=== PATIENT | female | born 1940 | race Caucasian/White ===

== ENCOUNTER 2016-06-25 00:49 | Emergency (ER) | payer MEDICARE, OTHER ==
[~2016-06-25] VITALS: Ht 149.9 cm; Wt 66.2 kg
[~2016-06-25 00:49] MED LIST: ACET500T68 PO; ALBU1.25 NEB; AMLO10TA2 PO; ARGI1POW19 PO; ASCO250T3 PO; ASPI-482 PO; BENZ100C2 PO; BUPR150T20 PO; BUPR150T6 PO; CARV25TA2 PO; DOCU100C5 PO; ESCI10TA PO; ESOM40CA PO; FOLI0.8T3 PO; FURO40TA4 PO; FURO80TA72 PO; HYDR100T24 PO; LOSA1TAB17 PO; LOSA1TAB18 PO; NYST30PO9 TP; ONDA4TAB10 SL; POLY17PO5 PO; RANI300C PO
[2016-06-25] MEDS ORDERED: GELATIN SPONGE SIZE 100. TP ONE (01:30)
[2016-06-25 01:39] LABS: INR 1.4 (0.8-1.1)
[2016-06-25 01:42] LABS: CALCIUM 8.3 mg/dL (8.5-10.1); CREATININE 2.5 mg/dL (0.6-1.0); GFR 18.9; POTASSIUM 3.9 mmol/L (3.5-5.1)
[2016-06-25 01:56] LABS: BASO # 0.1 x10^3/uL (0.0-0.2); BASO % 1 % (0-3); EOS % 2 % (0-3); HEMATOCRIT 33.3 % (36.0-47.0); HEMOGLOBIN 10.7 g/dL (12.0-15.5); LYMPH # 0.3 x10^3/uL (1.0-4.8); LYMPH % 6 % (24-48); MEAN CORPUSCULAR HEMOGLOBIN 29 pg (25-35); MEAN CORPUSCULAR HGB CONC 32 g/dL (31-37); MEAN CORPUSCULAR VOLUME 91 fL (79-100); MONO % 9 % (0-9); NEUT % 82 % (31-73); PLATELET COUNT 182 x10^3/uL (140-400); RED BLOOD COUNT 3.68 x10^6/uL (3.50-5.40); WHITE BLOOD COUNT 5.3 x10^3/uL (4.0-11.0)
--- NOTE | 2016-06-25 03:31 | PHYS DOC ---
Past Medical History Past Medical History: Anxiety, Depression, Diabetes-Type II, Hypertension, Renal Failure, Other Additional Past Medical Histor: gastroporesis Past Surgical History: Cholecystectomy, Tonsillectomy, Other Additional Past Surgical Histo: dialysis fistula ROXI arm Alcohol Use: None Drug Use: None Adult General Chief Complaint Chief Complaint: WOUND CHECK HPI HPI Patient is a 75 year old female who presents with bleeding from AV fistula after dialysis. She states she had uneventful dialysis yesterday, her alarm accidentally went off very early this morning & when she woke up she noticed bleeding from her fistula. She states this happened once before & was controlled with direct pressure. Denies bleeding from gums, hematemesis, hemoptysis, hematochezia/melena. She denies use of blood thinners. She comes from [facility]. Review of Systems Review of Systems Constitutional: Denies fever HENT: Denies nasal congestion or sore throat Respiratory: Denies cough or shortness of breath Cardiovascular: Denies chest pain GI: Denies abdominal pain, nausea, vomiting, bloody stools : Denies hematuria Musculoskeletal: Reports bleeding from AV fistula. Integument: Denies rash Neurologic: Denies headache Current Medications Current Medications Current Medications Medications (Trade) Dose Ordered Sig/Prisca Start Time Stop Time Status Last Admin Dose Admin Gelatin (Gelfoam Size 100) 1 each 1X ONCE 06/25/16 01:30 06/25/16 01:32 DC 06/25/16 02:11 1 EACH Allergies Allergies Allergies Coded Allergies Type Severity Reaction Last Updated Verified codeine Allergy Mild "makes me sleepy" 02/19/16 Yes quinine Allergy Mild "makes me sleepy" 02/19/16 Yes Physical Exam Physical Exam Constitutional: Well developed, well nourished, no acute distress, non-toxic appearance. HENT: Normocephalic, atraumatic, bilateral external ears normal, oropharynx moist, nose normal. Eyes: conjunctiva normal, no discharge. Cardiovascular: no edema. Lungs & Thorax: no respiratory distress. Abdomen: nondistended. Skin: Warm, dry, no erythema, no rash. Extremities: LUE AV fistula with ongoing minimal bleeding, clamp applied. distally NV intact. Neurologic: Alert and oriented X 3 Current Patient Data Vital Signs Vital Signs Date Time Temp Pulse Resp B/P Pulse Ox O2 Delivery O2 Flow Rate FiO2 06/25/16 03:55 67 192/95 96 Nasal Cannula 2 06/25/16 00:58 98.8 18 98.8 Lab Values Laboratory Tests Test 06/25/16 01:24 06/25/16 01:50 Prothrombin Time 16.0SEC (11.7-14.0) H Prothrombin Time INR 1.4 (0.8-1.1) H Sodium Level 136mmol/L (136-145) Potassium Level 3.9mmol/L (3.5-5.1) Chloride Level 99mmol/L (98-107) Carbon Dioxide Level 28mmol/L (21-32) Anion Gap 9 (6-14) Blood Urea Nitrogen 17mg/dL (7-20) Creatinine 2.5mg/dL (0.6-1.0) H Estimated GFR (Cockcroft-Gault) 18.9 Glucose Level 241mg/dL (70-99) H Calcium Level 8.3mg/dL (8.5-10.1) L White Blood Count 5.3x10^3/uL (4.0-11.0) Red Blood Count 3.68x10^6/uL (3.50-5.40) Hemoglobin 10.7g/dL (12.0-15.5) L Hematocrit 33.3% (36.0-47.0) L Mean Corpuscular Volume 91fL (79-100) Mean Corpuscular Hemoglobin 29pg (25-35) Mean Corpuscular Hemoglobin Concent 32g/dL (31-37) Red Cell Distribution Width 19.0% (11.5-14.5) H Platelet Count 182x10^3/uL (140-400) Neutrophils (%) (Auto) 82% (31-73) H Lymphocytes (%) (Auto) 6% (24-48) L Monocytes (%) (Auto) 9% (0-9) Eosinophils (%) (Auto) 2% (0-3) Basophils (%) (Auto) 1% (0-3) Neutrophils # (Auto) 4.3x10^3uL (1.8-7.7) Lymphocytes # (Auto) 0.3x10^3/uL (1.0-4.8) L Monocytes # (Auto) 0.5x10^3/uL (0.0-1.1) Eosinophils # (Auto) 0.1x10^3/uL (0.0-0.7) Basophils # (Auto) 0.1x10^3/uL (0.0-0.2) Laboratory Tests 06/25/16 01:50 Laboratory Tests 06/25/16 01:24 EKG EKG [] Radiology/Procedures Radiology/Procedures [] Course & Med Decision Making Course & Med Decision Making Pertinent Labs and Imaging studies reviewed. (See chart for details) Patient presents with bleeding from AV fistula. Applied direct pressure with clamp, there was still minimal amount of oozing of blood. Applied gelfoam with clamp for additional 30 minutes. Bleeding stopped & did not resume. Kept gelfoam in place, RN applied Coban dressing. Will transfer back to facility in stable & improved condition. Recommend evaluation by PCP tomorrow, nephrology/ dialysis center to advise regarding resuming regular dialysis. Come back for recurrence of uncontrolled bleeding. Discharged in stable & improved condition. [] Dragon Disclaimer Dragon Disclaimer This electronic medical record was generated, in whole or in part, using a voice recognition dictation system. Departure Departure Impression: Primary Impression: Bleeding from dialysis shunt Disposition: 05 TRANSFER OTHER Condition: IMPROVED Referrals: UNKNOWN PCP NAME (PCP) Patient Instructions: Dialysis (AV) Shunt, Malfunction Additional Instructions: You were seen in the emergency department today for bleeding from dialysis shunt. The bleeding was controlled here. The bandage should be changed in about 6 hours. You should be evaluated by a physician tomorrow. Nursing staff may correspond with your medication coordinator or dialysis center to determine when it is safe to resume dialysis. Return to the hospital for uncontrolled bleeding, more than oozing, any otherwise worsening condition. VIRIDIANA MANCERA MD Jun 25, 2016 03:31
[2016-06-25 03:55] VITALS: BP 192/95
== END 2016-06-25 03:59 | disposition short-term general hospital (02) ==
LOC: ER 00:49
DX: T82.838A Hemorrhage due to vascular prosthetic devices, implants and grafts, initial encounter (principal); E11.22 Type 2 diabetes mellitus with diabetic chronic kidney disease; I12.9 Hypertensive chronic kidney disease with stage 1 through stage 4 chronic kidney disease, or unspecified chronic kidney disease; N18.9 Chronic kidney disease, unspecified; E11.43 Type 2 diabetes mellitus with diabetic autonomic (poly)neuropathy; K31.84 Gastroparesis; F32.9 Major depressive disorder, single episode, unspecified; F41.9 Anxiety disorder, unspecified; Z88.8 Allergy status to other drugs, medicaments and biological substances; Z99.2 Dependence on renal dialysis; Z88.5 Allergy status to narcotic agent; Y84.1 Kidney dialysis as the cause of abnormal reaction of the patient, or of later complication, without mention of misadventure at the time of the procedure; Y92.89 Other specified places as the place of occurrence of the external cause
CPT/HCPCS: 36415; 80048; 85027; 85610; 99284; 99285

== ENCOUNTER 2016-07-08 07:34 | Inpatient (IN) | payer MEDICARE, OTHER ==
[~2016-07-08] VITALS: Ht 149.9 cm; Wt 63.5 kg
[~2016-07-08 07:34] MED LIST changes: +NYST15PO9 TP; -NYST30PO9 TP; +POLY17PO29 PO; -POLY17PO5 PO
[2016-07-08] MEDS ORDERED: GELATIN SPONGE SIZE 100. ONE (07:39)
[2016-07-08] MEDS ORDERED: GELATIN SPONGE SIZE 100. TP ONE (07:45)
--- NOTE | 2016-07-08 08:04 | PHYS DOC ---
Past Medical History Past Medical History: Anxiety, Depression, Diabetes-Type II, Hypertension, Renal Failure, Other Additional Past Medical Histor: gastroporesis Past Surgical History: Cholecystectomy, Tonsillectomy, Other Additional Past Surgical Histo: dialysis fistula ROXI arm Alcohol Use: None Drug Use: None Adult General Chief Complaint Chief Complaint: DIALYSIS PROBLEM HPI HPI This 75-year-old female who is presenting with some mild bleeding from her AV fistula on the left upper extremity that was noted in the night. She states she awoke with blood in her bed. She states she had the fistula assessed yesterday by her vascular surgeon and it was otherwise normal. She did not yet receive her dialysis treatment today. The fistula was not accessed recently. She denies any symptoms whatsoever. She denies any chest pain or shortness of breath. The AV fistula site shows a mild venous oozing but no pulsatile bleeding. Patient states she had this complication several weeks ago as well and was seen here at that time and it improved with direct pressure and no other intervention. Patient is normally requiring 2 L of O2 by nasal cannula. She is saturating appropriately with her usual oxygen therapy. She is in no acute distress at this time. Review of Systems Review of Systems Constitutional: Denies fever or chills [] Eyes: Denies change in visual acuity, redness, or eye pain [] HENT: Denies nasal congestion or sore throat [] Respiratory: Denies cough or shortness of breath [] Cardiovascular: No additional information not addressed in HPI [] GI: Denies abdominal pain, nausea, vomiting, bloody stools or diarrhea [] : Denies dysuria or hematuria [] Musculoskeletal: Denies back pain or joint pain [] Integument: Denies rash or skin lesions [] Neurologic: Denies headache, focal weakness or sensory changes [] Endocrine: Denies polyuria or polydipsia [] Current Medications Current Medications Current Medications Medications (Trade) Dose Ordered Sig/Prisca Start Time Stop Time Status Last Admin Dose Admin Gelatin (Gelfoam Size 100) 1 each STK-MED ONCE 07/08/16 07:39 07/08/16 07:40 DC Tranexamic Acid (Cyklokapron) 1,000 mg 1X ONCE 07/08/16 09:00 07/08/16 09:01 DC 07/08/16 09:11 1,000 MG Allergies Allergies Allergies Coded Allergies Type Severity Reaction Last Updated Verified codeine Allergy Mild "makes me sleepy" 02/19/16 Yes quinine Allergy Mild "makes me sleepy" 02/19/16 Yes Physical Exam Physical Exam Constitutional: Well developed, well nourished, no acute distress, non-toxic appearance. [] HENT: Normocephalic, atraumatic, bilateral external ears normal, oropharynx moist, no oral exudates, nose normal. [] Eyes: PERRLA, EOMI, conjunctiva normal, no discharge. [] Neck: Normal range of motion, no tenderness, supple, no stridor. [] Cardiovascular:Heart rate regular rhythm, no murmur [] Lungs & Thorax: Bilateral breath sounds clear to auscultation [] Abdomen: Bowel sounds normal, soft, no tenderness, no masses, no pulsatile masses. [] Skin: Warm, dry, no erythema, no rash. [] Back: No tenderness, no CVA tenderness. [] Extremities: No tenderness, no cyanosis, no clubbing, ROM intact, no edema, left -sided AV fistula site shows mild venous oozing from a focal pinpoint site, there is no pulsatile bleeding, AV fistula site appears otherwise unremarkable. [] Neurologic: Alert and oriented X 3, normal motor function, normal sensory function, no focal deficits noted. [] Psychologic: Affect normal, judgement normal, mood normal. [] Current Patient Data Vital Signs Vital Signs Date Time Temp Pulse Resp B/P (MAP) Pulse Ox O2 Delivery O2 Flow Rate FiO2 07/08/16 07:35 98.1 72 16 210/87 (128) 97 Nasal Cannula 2.0 98.1 EKG EKG [] Radiology/Procedures Radiology/Procedures [] Course & Med Decision Making Course & Med Decision Making Pertinent Labs and Imaging studies reviewed. (See chart for details) 75-year-old female with some mild venous oozing from her fistula site will have gentle pressure and Gelfoam applied and will be observed in the department for several hours for any complications. If the bleeding is controlled she will be discharged to receive her hemodialysis as scheduled later today. If she continues to have any bleeding complication, she'll be admitted to the hospital for further evaluation and observation. General pressure and Gelfoam was tried and unsuccessful. A TXA soaked gauze was applied to the area with gentle pressure as well and the patient still mildly bleeding at this time. An IV will be placed laboratory workup will be obtained. I'll be admitting the patient primarily to the hospital service as well as having a vascular surgery consult for her continued bleeding fistula. Discussed the case with the on-call vascular surgeon, Dr. Connors, who agreed to accept the patient for further evaluation and treatment. There were no further recommendations at this time. I additionally discussed the case with the hospitalist, Dr. Clement, who agreed to accept the patient. Nephrology consult was placed. Her laboratory workup is unremarkable. There is no evidence of any bleeding coagulopathy. Her hemoglobin was stable. She is not on blood thinners. Dragon Disclaimer Dragon Disclaimer This electronic medical record was generated, in whole or in part, using a voice recognition dictation system. Departure Departure Impression: Primary Impression: Bleeding from dialysis shunt Disposition: ADMITTED INPATIENT Admitting Physician: Gaby Clement Condition: STABLE Referrals: UNKNOWN PCP NAME (PCP) COLLIN LLOYD DO July 08, 2016 08:04
[2016-07-08] MEDS ORDERED: TRANEXAMIC ACID 1,000 MG/10 ML VIAL. TOP ONE (09:00)
[2016-07-08 10:38] LABS: BASO % 0 % (0-3); EOS % 1 % (0-3); HEMATOCRIT 33.7 % (36.0-47.0); HEMOGLOBIN 11.1 g/dL (12.0-15.5); LYMPH # 0.4 x10^3/uL (1.0-4.8); LYMPH % 6 % (24-48); MEAN CORPUSCULAR HEMOGLOBIN 29 pg (25-35); MEAN CORPUSCULAR HGB CONC 33 g/dL (31-37); MEAN CORPUSCULAR VOLUME 89 fL (79-100); MONO % 6 % (0-9); NEUT % 87 % (31-73); PLATELET COUNT 207 x10^3/uL (140-400); RED BLOOD COUNT 3.79 x10^6/uL (3.50-5.40); RED CELL DISTRIBUTION WIDTH 18.5 % (11.5-14.5)
[2016-07-08 10:44] LABS: INR 1.4 (0.8-1.1); PROTHROMBIN TIME PATIENT 16.3 SEC (11.7-14.0)
[2016-07-08] MEDS ORDERED: ONDANSETRON PF 4 MG/2 ML VIAL. IV PRN (10:45)
[2016-07-08] MEDS ORDERED: ACETAMINOPHEN 325 MG TABLET. PO PRN (10:45)
[2016-07-08 10:46] LABS: CALCIUM 8.7 mg/dL (8.5-10.1); CREATININE 3.9 mg/dL (0.6-1.0); GFR 11.3; POTASSIUM 4.5 mmol/L (3.5-5.1)
--- NOTE | 2016-07-08 11:49 | PDOC2 ---
CONSULT Date of Consult Date of Consult DATE: 07/08/16 TIME: 11:45 Reason for Consult Reason for Consult: ESRD Referring Physician Referring Physician: Dr Turcios Identification/Chief Complaint Chief Complaint bleeding from AV Access even before starting HD Problems: Source Source: Chart review, Patient History of Present Illness Reason for Visit: as dictated Past Medical History Cardiovascular: HTN Heme/Onc: Anemia NOS Psych: Depression Musculoskeletal: Osteoarthritis, Other Renal/: Chronic renal failure Endocrine: Diabetes Past Surgical History Past Surgical History: Cholecystectomy Family History Family History: Other (-ve from renal standpoint) Social History ALCOHOL: none Drugs: None Lives: with Family Current Problem List Problem List Problems Medical Problems: (1) Bleeding from dialysis shunt Status: Acute Current Medications Current Medications Current Medications Gelatin (Gelfoam Size 100) 1 each 1X ONCE TP Last administered on 07/08/16 07 :40; Start 07/08/16 at 07:45; Stop 07/08/16 at 07:46; Status DC Gelatin (Gelfoam Size 100) 1 each STK-MED ONCE .ROUTE ; Start 07/08/16 at 07:39 ; Stop 07/08/16 at 07:40; Status DC Tranexamic Acid (Cyklokapron) 1,000 mg 1X ONCE TOP Last administered on 09:11; Start 07/08/16 at 09:00; Stop 07/08/16 at 09:01; Status DC Ondansetron HCl (Zofran) 4 mg PRN Q8HRS PRN IV NAUSEA/VOMITING; Start 07/08/16 at 10:45; Stop 07/09/16 at 10:44 Acetaminophen (Tylenol) 650 mg PRN Q4HRS PRN PO FEVER; Start 07/08/16 at 10:45; Stop 07/09/16 at 10:44 Active Scripts Active Reported Ascorbic Acid 250 Mg Tablet 250 Mg PO DAILY Amlodipine Besylate 10 Mg Tablet 10 Mg PO DAILY Bupropion Hcl Sr (Bupropion Hcl) 150 Mg Tablet.er 150 Mg PO DAILY Hydralazine Hcl 100 Mg Tablet 1 Tab PO BID Losartan-Hctz 100-12.5 Mg Tab (Losartan/Hydrochlorothiazide) 1 Each Tablet 1 Tab PO DAILY Albuterol Sulfate Neb Soln (Albuterol Sulfate) 1.25 Mg/3 Ml Vial.neb 1 Vial NEB Q6HRS Ranitidine Hcl 300 Mg Capsule 1 Cap PO DAILY Miralax (Polyethylene Glycol 3350) 17 Gm Powd.pack 1 Packet PO DAILY Zofran Odt (Ondansetron) 4 Mg Tab.rapdis 1 Tab SL PRN Q4HRS PRN Nystatin 15 Gm Powder 1 Delmy TP PRN TID PRN Nephro-Hari Tablet (Folic Acid/Vitamin B Comp W-C) 0.8 Mg Tablet 1 Tab PO HS Escitalopram Oxalate 10 Mg Tablet 1 Tab PO DAILY Docusate Sodium 100 Mg Capsule 1 Cap PO BID Carvedilol 25 Mg Tablet 25 Mg PO BIDWMEALS Bupropion Xl (Bupropion Hcl) 150 Mg Tab.er.24h 1 Tab PO DAILY Aspir 81 (Aspirin) 81 Mg Tablet.dr 1 Tab PO DAILY Arginaid Powder (Arginine/Ascorbate Sod/Hari AC) 1 Each Powd.pack 1 Each PO BID Acetaminophen 500 Mg Tablet 1 Tab PO PRN Q4HRS PRN Allergies Allergies: Coded Allergies: codeine (Verified Allergy, Mild, "makes me sleepy", 02/19/16) quinine (Verified Allergy, Mild, "makes me sleepy", 02/19/16) ROS Review of System GEN: no Fevers no Chills EYES: no Visual Complaints ENT: no EN Drainage no Hearing deficiets CVS: no Orthopnea no CP RESP: no SOB no VÁZQUEZ GI: no Nausea no Vomiting : no Dysuria no Urgency HEME: no easy bruising no Palp Ly Nodes NEURO no Focal Weakness no Sz PSYCH: no Suicidal Ideation no Depression SKIN: no Rashes ENDO: no Polyuria or Polydipsia no Hot/Cold Intolerance MU SK: no Arthraigia no Myalgia Physical Exam Physical Exam General Appearance: Awake Alert Oriented x 3 In no Distress Eyes: VIsion Unchanged Conjunctiva Normal EN: No EN Drainage Mucous Memb. moist Neck: min JVD + JVP Supple no Thyromegaly CVS: S1 S2 + Murmur No Gallop No Rub no Edema Resp: no Rales no Rhonchi no Acc. Muscle use GI: BAS +ve NO Bruit Non Tender Non Distended : no CVA tenderness; no Suprapubic Tenderness SKIN: no Rashes Breast Exam deferred Mu.Sk: Adequate ROM no Muscle Atrophy Heme: Unable to palpate Obvious LAD no Splenomegaly NEURO: Good Strength and Tone Cranial Nerves II - XII grossly intact Psych: no Depressed no Active hallucination Vital Signs Vital Signs Date Time Temp Pulse Resp B/P (MAP) Pulse Ox O2 Delivery O2 Flow Rate FiO2 07/08/16 11:00 70 16 190/87 (121) 96 Nasal Cannula 2.0 07/08/16 07:35 98.1 98.1 Assessment & Plan ESRD: Current FLuid and E-lyte status does not necessitate emergent need for Dialysis. Will re-evaluate for Dialysis in am and continue on MWF schedule ( will hold HD today until AV Access bleeding can be evaluated by Vasc Surgery and cleared for use) Anemia: no Epogen for now. Transfuse with next HD as needed. HTN: Current BP meds reviewed. See orders for changes. Reval after home BP Meds given Bone & Mineral: follow phos and alter binder regimen as needed Bleeding from AV access - ER management noted. await Vasc Surgery eval and clearance for use. Discussed Plan of Care and prognosis etc. at length with family. Labs Labs Laboratory Tests Test 07/08/16 10:26 White Blood Count 7.0 x10^3/uL (4.0-11.0) Red Blood Count 3.79 x10^6/uL (3.50-5.40) Hemoglobin 11.1 g/dL (12.0-15.5) Hematocrit 33.7 % (36.0-47.0) Mean Corpuscular Volume 89 fL (79-100) Mean Corpuscular Hemoglobin 29 pg (25-35) Mean Corpuscular Hemoglobin Concent 33 g/dL (31-37) Red Cell Distribution Width 18.5 % (11.5-14.5) Platelet Count 207 x10^3/uL (140-400) Neutrophils (%) (Auto) 87 % (31-73) Lymphocytes (%) (Auto) 6 % (24-48) Monocytes (%) (Auto) 6 % (0-9) Eosinophils (%) (Auto) 1 % (0-3) Basophils (%) (Auto) 0 % (0-3) Neutrophils # (Auto) 6.0 x10^3uL (1.8-7.7) Lymphocytes # (Auto) 0.4 x10^3/uL (1.0-4.8) Monocytes # (Auto) 0.4 x10^3/uL (0.0-1.1) Eosinophils # (Auto) 0.1 x10^3/uL (0.0-0.7) Basophils # (Auto) 0.0 x10^3/uL (0.0-0.2) Prothrombin Time 16.3 SEC (11.7-14.0) Prothromb Time International Ratio 1.4 (0.8-1.1) Sodium Level 135 mmol/L (136-145) Potassium Level 4.5 mmol/L (3.5-5.1) Chloride Level 98 mmol/L (98-107) Carbon Dioxide Level 25 mmol/L (21-32) Anion Gap 12 (6-14) Blood Urea Nitrogen 35 mg/dL (7-20) Creatinine 3.9 mg/dL (0.6-1.0) Estimated GFR (Cockcroft-Gault) 11.3 Glucose Level 158 mg/dL (70-99) Calcium Level 8.7 mg/dL (8.5-10.1) Laboratory Tests Test 07/08/16 10:26 White Blood Count 7.0 x10^3/uL (4.0-11.0) Red Blood Count 3.79 x10^6/uL (3.50-5.40) Hemoglobin 11.1 g/dL (12.0-15.5) Hematocrit 33.7 % (36.0-47.0) Mean Corpuscular Volume 89 fL (79-100) Mean Corpuscular Hemoglobin 29 pg (25-35) Mean Corpuscular Hemoglobin Concent 33 g/dL (31-37) Red Cell Distribution Width 18.5 % (11.5-14.5) Platelet Count 207 x10^3/uL (140-400) Neutrophils (%) (Auto) 87 % (31-73) Lymphocytes (%) (Auto) 6 % (24-48) Monocytes (%) (Auto) 6 % (0-9) Eosinophils (%) (Auto) 1 % (0-3) Basophils (%) (Auto) 0 % (0-3) Neutrophils # (Auto) 6.0 x10^3uL (1.8-7.7) Lymphocytes # (Auto) 0.4 x10^3/uL (1.0-4.8) Monocytes # (Auto) 0.4 x10^3/uL (0.0-1.1) Eosinophils # (Auto) 0.1 x10^3/uL (0.0-0.7) Basophils # (Auto) 0.0 x10^3/uL (0.0-0.2) Prothrombin Time 16.3 SEC (11.7-14.0) Prothromb Time International Ratio 1.4 (0.8-1.1) Sodium Level 135 mmol/L (136-145) Potassium Level 4.5 mmol/L (3.5-5.1) Chloride Level 98 mmol/L (98-107) Carbon Dioxide Level 25 mmol/L (21-32) Anion Gap 12 (6-14) Blood Urea Nitrogen 35 mg/dL (7-20) Creatinine 3.9 mg/dL (0.6-1.0) Estimated GFR (Cockcroft-Gault) 11.3 Glucose Level 158 mg/dL (70-99) Calcium Level 8.7 mg/dL (8.5-10.1) RUFINO PACKER MD July 08, 2016 11:48
[2016-07-08] MEDS ORDERED: HYDR-2869 PO (12:18)
[2016-07-08] MEDS ORDERED: IPRA3AMP NEB (12:18)
[2016-07-08] MEDS ORDERED: PANT40TA5 PO (12:18)
[2016-07-08] MEDS ORDERED: MELA3TAB PO (12:18)
[2016-07-08] MEDS ORDERED: HYDR12.58 PO (12:18)
[2016-07-08] MEDS ORDERED: NYSTATIN TOPICAL POWDER 15GM BOTTLE. TP PRN (13:00)
[2016-07-08] MEDS ORDERED: ACETAMINOPHEN 500 MG TABLET PO PRN (13:00)
[2016-07-08] MEDS ORDERED: ONDANSETRON ODT 4 MG TAB.RAPDIS. PO PRN (13:00)
[2016-07-08 15:00] VITALS: BP 176/79
[2016-07-08] MEDS: IPRATRPIUM/ALBUTEROL 0.5/2.5MG 3 ML NEBU. NEB SCH ×2 (15:32→20:07)
--- NOTE | 2016-07-08 15:48 | PDOC1 ---
History and Physical Date of Admission Date of Admission DATE: 07/08/16 TIME: 15:44 Identification/Chief Complaint Chief Complaint bleeding Problems: Source Source: Chart review, Patient History of Present Illness History of Present Illness Ms. Ruffin is a 75-year-old female admitted from ER for acute bleeding from her AV fistula. She has ESRD, gets HD MWF, has fistula, and had bleeding start today, 2 days after last HD, no fall or cut or injury. Reported fistula assessed yesterday by her vascular surgeon and it was otherwise normal. Past Medical History Cardiovascular: HTN Heme/Onc: Anemia NOS Psych: Depression Musculoskeletal: Osteoarthritis, Other Renal/: Chronic renal failure Endocrine: Diabetes Past Surgical History Past Surgical History: Cholecystectomy Family History Family History: No Significant, Other (-ve from renal standpoint) Social History Smoke: No ALCOHOL: none Drugs: None Current Problem List Problem List Problems Medical Problems: (1) Bleeding from dialysis shunt Status: Acute Problems: Current Medications Current Medications Current Medications Gelatin (Gelfoam Size 100) 1 each 1X ONCE TP Last administered on 07/08/16 07 :40; Start 07/08/16 at 07:45; Stop 07/08/16 at 07:46; Status DC Gelatin (Gelfoam Size 100) 1 each STK-MED ONCE .ROUTE ; Start 07/08/16 at 07:39 ; Stop 07/08/16 at 07:40; Status DC Tranexamic Acid (Cyklokapron) 1,000 mg 1X ONCE TOP Last administered on 09:11; Start 07/08/16 at 09:00; Stop 07/08/16 at 09:01; Status DC Ondansetron HCl (Zofran) 4 mg PRN Q8HRS PRN IV NAUSEA/VOMITING; Start 07/08/16 at 10:45; Stop 07/09/16 at 10:44 Acetaminophen (Tylenol) 650 mg PRN Q4HRS PRN PO FEVER; Start 07/08/16 at 10:45; Stop 07/08/16 at 14:41; Status DC Acetaminophen (Tylenol) 500 mg PRN Q4HRS PRN PO PAIN; Start 07/08/16 at 13:00 Amlodipine Besylate (Norvasc) 10 mg DAILY PO ; Start 07/09/16 at 09:00 Aspirin (Ecotrin) 81 mg DAILYWBKFT PO ; Start 07/09/16 at 08:00 Bupropion HCl (Wellbutrin Xl) 150 mg DAILY PO ; Start 07/09/16 at 09:00 Docusate Sodium (Colace) 100 mg BID PO ; Start 07/08/16 at 21:00 Escitalopram Oxalate (Lexapro) 10 mg DAILY PO ; Start 07/09/16 at 09:00 Vitamin B Complex/ Vitamin C (Farheen-Hari) 1 tab HS PO ; Start 07/08/16 at 21:00 Hydralazine HCl (Apresoline) 50 mg QID PO Last administered on 07/08/16 13:41; Start 07/08/16 at 13:00 Albuterol/ Ipratropium (Duoneb) 3 ml RTQID NEB Last administered on 07/08/16t 15 :32; Start 07/08/16 at 16:00 Nystatin (Nystop) 1 delmy PRN TID PRN TP RASH; Start 07/08/16 at 13:00 Ondansetron HCl (Zofran Odt) 4 mg PRN Q4HRS PRN PO NAUSEA; Start 07/08/16 at 13: 00 Pantoprazole Sodium (Protonix) 40 mg DAILYAC PO ; Start 07/09/16 at 07:30 Polyethylene Glycol (miraLAX PACKET) 17 gm DAILY PO ; Start 07/09/16 at 09:00 Non-Formulary Medication 1 vial Q6HRS NEB ; Start 07/08/16 at 18:00; Status UNV Ascorbic Acid (Vitamin C) 250 mg DAILY PO ; Start 07/09/16 at 09:00 Non-Formulary Medication 150 mg DAILY PO ; Start 07/09/16 at 09:00; Status UNV Carvedilol (Coreg) 25 mg BIDWMEALS PO ; Start 07/08/16 at 17:00 Non-Formulary Medication 1 tab BID PO ; Start 07/08/16 at 21:00; Status UNV Non-Formulary Medication 1 tab DAILY PO ; Start 07/09/16 at 09:00; Status UNV Losartan Potassium (Cozaar) 100 mg DAILY PO ; Start 07/09/16 at 09:00 Non-Formulary Medication 1 tab QHS PO ; Start 07/08/16 at 21:00; Status UNV Famotidine (Pepcid) 20 mg DAILY PO ; Start 07/09/16 at 09:00; Stop 07/09/16 at 09: 00; Status DC Hydrochlorothiazide (Microzide) 12.5 mg DAILY PO ; Start 07/09/16 at 09:00 Active Scripts Active Reported Pantoprazole Sodium 40 Mg Tablet. 1 Tab PO DAILY Melatonin 3 Mg Tablet 1 Tab PO QHS Hydrochlorothiazide Tablet (Hydrochlorothiazide) 12.5 Mg Tablet 1 Tab PO DAILY Hydralazine Hcl 50 Mg Tablet 50 Mg PO QID Duoneb 0.5-3(2.5) Mg/3 Ml (Albuterol/Ipratropium) 3 Ml Ampul.neb 3 Ml NEB QID Ascorbic Acid 250 Mg Tablet 250 Mg PO DAILY Amlodipine Besylate 10 Mg Tablet 10 Mg PO DAILY Bupropion Hcl Sr (Bupropion Hcl) 150 Mg Tablet.er 150 Mg PO DAILY Hydralazine Hcl 100 Mg Tablet 1 Tab PO BID Losartan-Hctz 100-12.5 Mg Tab (Losartan/Hydrochlorothiazide) 1 Each Tablet 1 Tab PO DAILY Albuterol Sulfate Neb Soln (Albuterol Sulfate) 1.25 Mg/3 Ml Vial.neb 1 Vial NEB Q6HRS Ranitidine Hcl 300 Mg Capsule 1 Cap PO DAILY Miralax (Polyethylene Glycol 3350) 17 Gm Powd.pack 1 Packet PO DAILY Zofran Odt (Ondansetron) 4 Mg Tab.rapdis 1 Tab SL PRN Q4HRS PRN Nystatin 15 Gm Powder 1 Delmy TP PRN TID PRN Nephro-Hari Tablet (Folic Acid/Vitamin B Comp W-C) 0.8 Mg Tablet 1 Tab PO HS Escitalopram Oxalate 10 Mg Tablet 1 Tab PO DAILY Docusate Sodium 100 Mg Capsule 1 Cap PO BID Carvedilol 25 Mg Tablet 25 Mg PO BIDWMEALS Bupropion Xl (Bupropion Hcl) 150 Mg Tab.er.24h 1 Tab PO DAILY Aspir 81 (Aspirin) 81 Mg Tablet. 1 Tab PO DAILY Arginaid Powder (Arginine/Ascorbate Sod/Hari AC) 1 Each Powd.pack 1 Each PO BID Acetaminophen 500 Mg Tablet 1 Tab PO PRN Q4HRS PRN Allergies Allergies: Coded Allergies: codeine (Verified Allergy, Mild, "makes me sleepy", 02/19/16) quinine (Verified Allergy, Mild, "makes me sleepy", 02/19/16) ROS General: YES: Fatigue, No: Chills, Night Sweats, Malaise, Appetite, Other PSYCHOLOGICAL ROS: No: Anxiety, Behavioral Disorder, Concentration difficultie , Decreased libido, Depression, Disorientation, Hallucinations, Hostility, Irritablity, Memory difficulties, Mood Swings, Obsessive thoughts, Physical abuse, Sexual abuse, Sleep disturbances, Suicidal ideation, Other Respiratory: No: Cough, Hemoptysis, Orthopnea, Pleuritic Pain, Shortness of breath, SOB with excertion, Sputum Changes, Stridor, Tachypnea, Wheezing, Other Cardiovascular: No Chest Pain, No Palpitations, No Orthopnea, No Paroxysmal Noc. Dyspnea, No Edema, No Lt Headedness, No Other Gastrointestinal: No Nausea, No Vomiting, No Abdominal Pain, No Diarrhea, No Constipation, No Melena, No Hematochezia, No Other Genitourinary: No Dysuria, No Frequency, No Incontinence, No Hematuria, No Retention, No Discharge, No Urgency, No Pain, No Flank Pain, No Other, No , No , No , No , No , No , No Musculoskeletal: Yes Joint Stiffness, No Gait Disturbance, No Joint Swelling, No Muscle Pain, No Muscular Weakness , No Pain In:, No Swelling In:, No Other Neurological: No Behavorial Changes, No Bowel/Bladder ControlChng, No Confusion , No Dizziness, No Gait Disturbance, No Headaches, No Impaired Coord/balance, No Memory Loss, No Numbness/Tingling, No Seizures, No Speech Problems, No Tremors, No Visual Changes, No Weakness, No Other Skin: No Dry Skin, No Eczema, No Hair Changes, No Lumps, No Mole Changes, No Mottling, No Nail Changes, No Pruritus, No Rash, No Skin Lesion Changes, No Other, No Acne Physical Exam General: Alert, Oriented X3, Cooperative, No acute distress HEENT: Atraumatic, PERRLA, EOMI, Mucous membr. moist/pink Lungs: Clear to auscultation, Normal air movement Heart: no gallops, no murmurs Abdomen: Normal bowel sounds, Soft Rectal Exam: not examined Extremities: No edema, Normal pulses Neuro: Normal speech, Sensation intact, Cranial nerves 3-12 NL Psych/Mental Status: Mood NL Vitals Vitals Vital Signs Date Time Temp Pulse Resp B/P (MAP) Pulse Ox O2 Delivery O2 Flow Rate FiO2 07/08/16 15:32 96 Nasal Cannula 2.0 07/08/16 13:41 77 176/79 07/08/16 11:00 16 07/08/16 07:35 98.1 98.1 Labs Labs Laboratory Tests Test 07/08/16 10:26 White Blood Count 7.0 x10^3/uL (4.0-11.0) Red Blood Count 3.79 x10^6/uL (3.50-5.40) Hemoglobin 11.1 g/dL (12.0-15.5) Hematocrit 33.7 % (36.0-47.0) Mean Corpuscular Volume 89 fL (79-100) Mean Corpuscular Hemoglobin 29 pg (25-35) Mean Corpuscular Hemoglobin Concent 33 g/dL (31-37) Red Cell Distribution Width 18.5 % (11.5-14.5) Platelet Count 207 x10^3/uL (140-400) Neutrophils (%) (Auto) 87 % (31-73) Lymphocytes (%) (Auto) 6 % (24-48) Monocytes (%) (Auto) 6 % (0-9) Eosinophils (%) (Auto) 1 % (0-3) Basophils (%) (Auto) 0 % (0-3) Neutrophils # (Auto) 6.0 x10^3uL (1.8-7.7) Lymphocytes # (Auto) 0.4 x10^3/uL (1.0-4.8) Monocytes # (Auto) 0.4 x10^3/uL (0.0-1.1) Eosinophils # (Auto) 0.1 x10^3/uL (0.0-0.7) Basophils # (Auto) 0.0 x10^3/uL (0.0-0.2) Prothrombin Time 16.3 SEC (11.7-14.0) Prothromb Time International Ratio 1.4 (0.8-1.1) Sodium Level 135 mmol/L (136-145) Potassium Level 4.5 mmol/L (3.5-5.1) Chloride Level 98 mmol/L (98-107) Carbon Dioxide Level 25 mmol/L (21-32) Anion Gap 12 (6-14) Blood Urea Nitrogen 35 mg/dL (7-20) Creatinine 3.9 mg/dL (0.6-1.0) Estimated GFR (Cockcroft-Gault) 11.3 Glucose Level 158 mg/dL (70-99) Calcium Level 8.7 mg/dL (8.5-10.1) Laboratory Tests Test 07/08/16 10:26 White Blood Count 7.0 x10^3/uL (4.0-11.0) Red Blood Count 3.79 x10^6/uL (3.50-5.40) Hemoglobin 11.1 g/dL (12.0-15.5) Hematocrit 33.7 % (36.0-47.0) Mean Corpuscular Volume 89 fL (79-100) Mean Corpuscular Hemoglobin 29 pg (25-35) Mean Corpuscular Hemoglobin Concent 33 g/dL (31-37) Red Cell Distribution Width 18.5 % (11.5-14.5) Platelet Count 207 x10^3/uL (140-400) Neutrophils (%) (Auto) 87 % (31-73) Lymphocytes (%) (Auto) 6 % (24-48) Monocytes (%) (Auto) 6 % (0-9) Eosinophils (%) (Auto) 1 % (0-3) Basophils (%) (Auto) 0 % (0-3) Neutrophils # (Auto) 6.0 x10^3uL (1.8-7.7) Lymphocytes # (Auto) 0.4 x10^3/uL (1.0-4.8) Monocytes # (Auto) 0.4 x10^3/uL (0.0-1.1) Eosinophils # (Auto) 0.1 x10^3/uL (0.0-0.7) Basophils # (Auto) 0.0 x10^3/uL (0.0-0.2) Prothrombin Time 16.3 SEC (11.7-14.0) Prothromb Time International Ratio 1.4 (0.8-1.1) Sodium Level 135 mmol/L (136-145) Potassium Level 4.5 mmol/L (3.5-5.1) Chloride Level 98 mmol/L (98-107) Carbon Dioxide Level 25 mmol/L (21-32) Anion Gap 12 (6-14) Blood Urea Nitrogen 35 mg/dL (7-20) Creatinine 3.9 mg/dL (0.6-1.0) Estimated GFR (Cockcroft-Gault) 11.3 Glucose Level 158 mg/dL (70-99) Calcium Level 8.7 mg/dL (8.5-10.1) VTE Prophylaxis Ordered VTE Prophylaxis Devices: No VTE Pharmacological Prophylaxi: Yes Assessment/Plan Assessment/Plan bleeding from AV fistula on left arm ESRD due for HD, renal consulted anemia of CKD htn depression GERD, admit obs SANYA FORD MD July 08, 2016 15:48
--- NOTE | 2016-07-08 16:11 | PDOC ---
Provider Note Provider Note Vascular Note Pt. briefly seen for recurrent bleeding from lt UA fistula As I entered room she was finishing a meal , therefore will not do surgery today unless bleeding becomes profuse and uncontrollable. Will be seen by Dr. Connors in AM, will make her NPO tonight in case WHIT CASTLE MD July 08, 2016 16:11
[2016-07-08] MEDS: CARVEDILOL 12.5 MG TABLET. PO SCH (17:59)
[2016-07-08] MEDS ORDERED: NON FORMULARY ITEM (Albuterol Sulfate (Albuterol Sulfate Neb Soln) 1 VIAL) NEB SCH (18:00)
[2016-07-08 19:20] VITALS: BP 159/64
[2016-07-08] MEDS: DOCUSATE SODIUM 100 MG CAPSULE. PO SCH (20:50)
[2016-07-08] MEDS ORDERED: NON FORMULARY ITEM (Melatonin 1 TAB) PO SCH (21:00)
[2016-07-08] MEDS ORDERED: FOLIC/VIT B COMP W-C (RENAL) TABLET. PO SCH (21:00)
[2016-07-08] MEDS ORDERED: NON FORMULARY ITEM (Hydralazine Hcl 1 TAB) PO SCH (21:00)
[2016-07-08 23:20] VITALS: BP 166/64
--- NOTE | 2016-07-09 02:08 | CONS ---
DATE OF CONSULTATION: PRIMARY PHYSICIAN: Dr. Clement. REASON FOR CONSULTATION: ESRD, dialysis Monday, Monday and Monday. HISTORY OF PRESENT ILLNESS: The patient is a pleasant 75-year-old female who noted minimal bleeding from her left upper arm AV graft. She apparently woke up in the middle of the night and noted blood in her bed. She was unable to go to dialysis today and instead presented to the hospital for further evaluation. She had minimal venous oozing, but no pulsatile bleeding that she is aware of. She apparently was treated in the ER with Gelfoam and Cyklokapron x 1. Her blood pressures were noted to be severely elevated at 210/87. She was admitted and we were asked to see her for further evaluation. Given her ongoing bleeding, she is hesitant to go to dialysis today until seen by the vascular surgeons. Her AV graft is in a bandage currently and I did not open it. She denies any other signs or symptoms at this time. For rest of the details, see electronic records. RUFINO PACKER MD DR: JOVITA/jaz JOB#: [id number] / [id number]
[2016-07-09] MEDS ORDERED: PANTOPRAZOLE 40 MG TABLET.DR. PO SCH (07:30)
[2016-07-09] MEDS ORDERED: ASPIRIN ENTERIC COATED 81 MG TABLET.DR. PO SCH (08:00)
--- NOTE | 2016-07-09 08:20 | PDOC ---
Provider Note Provider Note (please see full dictation) 75 yo female with ESRD on dialysis presented with bleeding from her left arm fistula. She has a left brachiocephalic fistula. No bleeding at this time. Some blood on previous dressing. There is a good thrill in the left arm fistula. There is no erythema or evidence of pseudoaneurysm. Previous puncture sites are visible, but there is no evidence of which bled. She saw Dr. Varner ([facility] [place] [facility]) at [facility] on 07/07/16. She has had a previous episode of bleeding. Would consider left arm fistulogram with possible intervention if there is central stenosis that may increase risk of bleeding. This can be done while in the hospital or as an outpt. JENNIFER MARES MD July 09, 2016 08:19
[2016-07-09] MEDS: IPRATRPIUM/ALBUTEROL 0.5/2.5MG 3 ML NEBU. NEB SCH ×2 (08:30→11:46)
[2016-07-09] MEDS ORDERED: IV NORMAL SALINE 1000ML BAG 1,000 ML IV PRN ×2 (08:39)
[2016-07-09] MEDS ORDERED: DIALYSIS PATIENT. MC PRN (08:45)
[2016-07-09] MEDS ORDERED: ALBUMIN HUMAN 25% 200 ML IV PRN (08:45)
[2016-07-09] MEDS ORDERED: LIDOCAINE 1% PF 2 ML VIAL. SQ STA (08:58)
[2016-07-09] MEDS ORDERED: hydroCHLOROthiazide 12.5 MG CAPSULE PO SCH (09:00)
[2016-07-09] MEDS ORDERED: LOSARTAN POTASSIUM 50 MG TABLET. PO SCH (09:00)
[2016-07-09] MEDS ORDERED: buPROPion XL 150 MG TAB.ER.24H. PO SCH (09:00)
[2016-07-09] MEDS: DOCUSATE SODIUM 100 MG CAPSULE. PO SCH (09:00)
[2016-07-09] MEDS ORDERED: FAMOTIDINE 20 MG TABLET. PO SCH (09:00)
[2016-07-09] MEDS ORDERED: ASCORBIC ACID 500 MG TABLET PO SCH (09:00)
[2016-07-09] MEDS ORDERED: ESCITALOPRAM 10 MG TABLET. PO SCH (09:00)
[2016-07-09] MEDS ORDERED: POLYETHYLENE GLYCOL 3350 17 GM PACKET. PO SCH (09:00)
[2016-07-09] MEDS ORDERED: amLODIPine BESYLATE 10 MG TABLET PO SCH (09:00)
[2016-07-09] MEDS ORDERED: NON FORMULARY ITEM (Hydrochlorothiazide (Hydrochlorothiazide Tablet) 1 TAB) PO SCH (09:00)
[2016-07-09] MEDS ORDERED: BUPROPION HCL 150 MG PO SCH (09:00)
[2016-07-09] MEDS: CARVEDILOL 12.5 MG TABLET. PO SCH (09:50)
--- NOTE | 2016-07-09 09:58 | PDOC3 ---
Discharge Summary Visit Information Date of Admission: July 08, 2016 Date of Discharge: July 09, 2016 Admitting Diagnosis Comment: bleeding from AV fistula on left arm ESRD due for HD, anemia of CKD htn depression GERD, Final Diagnosis Problems Medical Problems: (1) Bleeding from dialysis shunt Status: Acute Brief Hospital Course Allergies Allergies Coded Allergies Type Severity Reaction Last Updated Verified codeine Allergy Mild "makes me sleepy" 02/19/16 Yes quinine Allergy Mild "makes me sleepy" 02/19/16 Yes Vital Signs Vital Signs Date Time Temp Pulse Resp B/P (MAP) Pulse Ox O2 Delivery O2 Flow Rate FiO2 07/09/16 09:52 78 181/76 07/09/16 08:31 96 Nasal Cannula 2.0 07/08/16 23:20 98.3 20 98.3 Lab Results Laboratory Tests Test 07/08/16 10:26 White Blood Count 7.0 x10^3/uL (4.0-11.0) Red Blood Count 3.79 x10^6/uL (3.50-5.40) Hemoglobin 11.1 g/dL (12.0-15.5) Hematocrit 33.7 % (36.0-47.0) Mean Corpuscular Volume 89 fL (79-100) Mean Corpuscular Hemoglobin 29 pg (25-35) Mean Corpuscular Hemoglobin Concent 33 g/dL (31-37) Red Cell Distribution Width 18.5 % (11.5-14.5) Platelet Count 207 x10^3/uL (140-400) Neutrophils (%) (Auto) 87 % (31-73) Lymphocytes (%) (Auto) 6 % (24-48) Monocytes (%) (Auto) 6 % (0-9) Eosinophils (%) (Auto) 1 % (0-3) Basophils (%) (Auto) 0 % (0-3) Neutrophils # (Auto) 6.0 x10^3uL (1.8-7.7) Lymphocytes # (Auto) 0.4 x10^3/uL (1.0-4.8) Monocytes # (Auto) 0.4 x10^3/uL (0.0-1.1) Eosinophils # (Auto) 0.1 x10^3/uL (0.0-0.7) Basophils # (Auto) 0.0 x10^3/uL (0.0-0.2) Prothrombin Time 16.3 SEC (11.7-14.0) Prothromb Time International Ratio 1.4 (0.8-1.1) Sodium Level 135 mmol/L (136-145) Potassium Level 4.5 mmol/L (3.5-5.1) Chloride Level 98 mmol/L (98-107) Carbon Dioxide Level 25 mmol/L (21-32) Anion Gap 12 (6-14) Blood Urea Nitrogen 35 mg/dL (7-20) Creatinine 3.9 mg/dL (0.6-1.0) Estimated GFR (Cockcroft-Gault) 11.3 Glucose Level 158 mg/dL (70-99) Calcium Level 8.7 mg/dL (8.5-10.1) Laboratory Tests Test 07/08/16 10:26 White Blood Count 7.0 x10^3/uL (4.0-11.0) Red Blood Count 3.79 x10^6/uL (3.50-5.40) Hemoglobin 11.1 g/dL (12.0-15.5) Hematocrit 33.7 % (36.0-47.0) Mean Corpuscular Volume 89 fL (79-100) Mean Corpuscular Hemoglobin 29 pg (25-35) Mean Corpuscular Hemoglobin Concent 33 g/dL (31-37) Red Cell Distribution Width 18.5 % (11.5-14.5) Platelet Count 207 x10^3/uL (140-400) Neutrophils (%) (Auto) 87 % (31-73) Lymphocytes (%) (Auto) 6 % (24-48) Monocytes (%) (Auto) 6 % (0-9) Eosinophils (%) (Auto) 1 % (0-3) Basophils (%) (Auto) 0 % (0-3) Neutrophils # (Auto) 6.0 x10^3uL (1.8-7.7) Lymphocytes # (Auto) 0.4 x10^3/uL (1.0-4.8) Monocytes # (Auto) 0.4 x10^3/uL (0.0-1.1) Eosinophils # (Auto) 0.1 x10^3/uL (0.0-0.7) Basophils # (Auto) 0.0 x10^3/uL (0.0-0.2) Prothrombin Time 16.3 SEC (11.7-14.0) Prothromb Time International Ratio 1.4 (0.8-1.1) Sodium Level 135 mmol/L (136-145) Potassium Level 4.5 mmol/L (3.5-5.1) Chloride Level 98 mmol/L (98-107) Carbon Dioxide Level 25 mmol/L (21-32) Anion Gap 12 (6-14) Blood Urea Nitrogen 35 mg/dL (7-20) Creatinine 3.9 mg/dL (0.6-1.0) Estimated GFR (Cockcroft-Gault) 11.3 Glucose Level 158 mg/dL (70-99) Calcium Level 8.7 mg/dL (8.5-10.1) Brief Hospital Course Ms. Ruffin is a 75 old [sex] who presented with [ ] bleeding from her left AV site, hemodynamicallys table. VAsc sx consulted, wrapped, spontaneously stopped Undergoing HD now, If no bleeding or pressures not high then can have arteriogram done as OP,. Dw renal Pt seen and examiend in HD COnsults; renal; vascsx, Proc: none time 31 mins dw consultants, staff etc Discharge Information Condition at Discharge: Improved, Stable Disposition/Orders: D/C to Home Scheduled Albuterol Sulfate (Albuterol Sulfate Neb Soln), 1 VIAL NEB Q6HRS, (Reported) Amlodipine Besylate (Amlodipine Besylate), 10 MG PO DAILY, (Reported) Arginine/Ascorbate Sod/Hari AC (Arginaid Powder), 1 EACH PO BID, (Reported) Ascorbic Acid (Ascorbic Acid), 250 MG PO DAILY, (Reported) Aspirin (Aspir 81), 1 TAB PO DAILY, (Reported) Bupropion Hcl (Bupropion Xl), 1 TAB PO DAILY, (Reported) Bupropion Hcl (Bupropion Hcl Sr), 150 MG PO DAILY, (Reported) Carvedilol (Carvedilol), 25 MG PO BIDWMEALS, (Reported) Docusate Sodium (Docusate Sodium), 1 CAP PO BID, (Reported) Escitalopram Oxalate (Escitalopram Oxalate), 1 TAB PO DAILY, (Reported) Folic Acid/Vitamin B Comp W-C (Nephro-Hari Tablet), 1 TAB PO HS, (Reported) Hydralazine Hcl (Hydralazine Hcl), 1 TAB PO BID, (Reported) Hydralazine Hcl (Hydralazine Hcl), 50 MG PO QID, (Reported) Hydrochlorothiazide (Hydrochlorothiazide Tablet), 1 TAB PO DAILY, (Reported) Ipratropium/Albuterol Sulfate (Duoneb 0.5-3(2.5) Mg/3 Ml), 3 ML NEB QID, ( Reported) Losartan/Hydrochlorothiazide (Losartan-Hctz 100-12.5 Mg Tab), 1 TAB PO DAILY, ( Reported) Melatonin (Melatonin), 1 TAB PO QHS, (Reported) Pantoprazole Sodium (Pantoprazole Sodium), 1 TAB PO DAILY, (Reported) Polyethylene Glycol 3350 (Miralax), 1 PACKET PO DAILY, (Reported) Ranitidine Hcl (Ranitidine Hcl), 1 CAP PO DAILY, (Reported) Scheduled PRN Acetaminophen (Acetaminophen), 1 TAB PO PRN Q4HRS PRN for PAIN, (Reported) Nystatin (Nystatin), 1 MATTHEW TP PRN TID PRN for RASH, (Reported) Ondansetron (Zofran Odt), 1 TAB SL PRN Q4HRS PRN for NAUSEA, (Reported) ART MCCRAY MD July 09, 2016 09:58
--- NOTE | 2016-07-09 10:24 | PDOC ---
Dialysis Progress Note Dialysis Note Dialysis Note Seen on Hemodialysis, tolerating treatment Well for now Vitals on Hemodialysis at time of my visit - 73 afeb General Appearance: Awake: Alert Oriented x 3 Neck: No JVD or JVP Chest: CTA Chris Heart: S1 S2 Abdomen - Soft NTND Extremities - No Edema ESRD: Dialysis as below F 180 NR 3.0 Hrs 3 K 2.5 Ca 140 Na 35 HC03 Qb 350 + Qd 500+ Heparin 0 Units Uf to dry weight as tolerated or 1 kg below May give 25-50 gms of 25% Albumin if needed to maintain Hemodynamic stability Treatment plan reviewed and discussed with senior benefits specialist BP meds will be given (held since pt was NPO for possible OR trip) - willreval BP after that Vitals Vital Signs Vital Signs Date Time Temp Pulse Resp B/P (MAP) Pulse Ox O2 Delivery O2 Flow Rate FiO2 07/09/16 09:52 78 181/76 07/09/16 08:31 96 Nasal Cannula 2.0 07/08/16 23:20 98.3 20 98.3 Labs Last Labs Laboratory Tests Test 07/08/16 10:26 White Blood Count 7.0 x10^3/uL (4.0-11.0) Red Blood Count 3.79 x10^6/uL (3.50-5.40) Hemoglobin 11.1 g/dL (12.0-15.5) Hematocrit 33.7 % (36.0-47.0) Mean Corpuscular Volume 89 fL (79-100) Mean Corpuscular Hemoglobin 29 pg (25-35) Mean Corpuscular Hemoglobin Concent 33 g/dL (31-37) Red Cell Distribution Width 18.5 % (11.5-14.5) Platelet Count 207 x10^3/uL (140-400) Neutrophils (%) (Auto) 87 % (31-73) Lymphocytes (%) (Auto) 6 % (24-48) Monocytes (%) (Auto) 6 % (0-9) Eosinophils (%) (Auto) 1 % (0-3) Basophils (%) (Auto) 0 % (0-3) Neutrophils # (Auto) 6.0 x10^3uL (1.8-7.7) Lymphocytes # (Auto) 0.4 x10^3/uL (1.0-4.8) Monocytes # (Auto) 0.4 x10^3/uL (0.0-1.1) Eosinophils # (Auto) 0.1 x10^3/uL (0.0-0.7) Basophils # (Auto) 0.0 x10^3/uL (0.0-0.2) Prothrombin Time 16.3 SEC (11.7-14.0) Prothromb Time International Ratio 1.4 (0.8-1.1) Sodium Level 135 mmol/L (136-145) Potassium Level 4.5 mmol/L (3.5-5.1) Chloride Level 98 mmol/L (98-107) Carbon Dioxide Level 25 mmol/L (21-32) Anion Gap 12 (6-14) Blood Urea Nitrogen 35 mg/dL (7-20) Creatinine 3.9 mg/dL (0.6-1.0) Estimated GFR (Cockcroft-Gault) 11.3 Glucose Level 158 mg/dL (70-99) Calcium Level 8.7 mg/dL (8.5-10.1) Laboratory Tests Test 07/08/16 10:26 White Blood Count 7.0 x10^3/uL (4.0-11.0) Red Blood Count 3.79 x10^6/uL (3.50-5.40) Hemoglobin 11.1 g/dL (12.0-15.5) Hematocrit 33.7 % (36.0-47.0) Mean Corpuscular Volume 89 fL (79-100) Mean Corpuscular Hemoglobin 29 pg (25-35) Mean Corpuscular Hemoglobin Concent 33 g/dL (31-37) Red Cell Distribution Width 18.5 % (11.5-14.5) Platelet Count 207 x10^3/uL (140-400) Neutrophils (%) (Auto) 87 % (31-73) Lymphocytes (%) (Auto) 6 % (24-48) Monocytes (%) (Auto) 6 % (0-9) Eosinophils (%) (Auto) 1 % (0-3) Basophils (%) (Auto) 0 % (0-3) Neutrophils # (Auto) 6.0 x10^3uL (1.8-7.7) Lymphocytes # (Auto) 0.4 x10^3/uL (1.0-4.8) Monocytes # (Auto) 0.4 x10^3/uL (0.0-1.1) Eosinophils # (Auto) 0.1 x10^3/uL (0.0-0.7) Basophils # (Auto) 0.0 x10^3/uL (0.0-0.2) Prothrombin Time 16.3 SEC (11.7-14.0) Prothromb Time International Ratio 1.4 (0.8-1.1) Sodium Level 135 mmol/L (136-145) Potassium Level 4.5 mmol/L (3.5-5.1) Chloride Level 98 mmol/L (98-107) Carbon Dioxide Level 25 mmol/L (21-32) Anion Gap 12 (6-14) Blood Urea Nitrogen 35 mg/dL (7-20) Creatinine 3.9 mg/dL (0.6-1.0) Estimated GFR (Cockcroft-Gault) 11.3 Glucose Level 158 mg/dL (70-99) Calcium Level 8.7 mg/dL (8.5-10.1) Assessment Assessment Problems Medical Problems: (1) Bleeding from dialysis shunt Status: Acute Problems: Plan Plan of Care Problems Medical Problems: (1) Bleeding from dialysis shunt Status: Acute RUFINO PACKER MD July 09, 2016 10:24
[2016-07-09 12:59] VITALS: BP 161/80
[2016-07-09 23:12] LABS: HEP B SURFACE ABDY Reactive (.)
--- NOTE | 2016-07-10 03:24 | CONS ---
DATE OF CONSULTATION: 07/09/2016 CHIEF COMPLAINT: Bleeding from left arm AV fistula. HISTORY OF PRESENT ILLNESS: The patient is a 75-year-old female with chronic renal failure, on hemodialysis. She has been recently dialyzing through a left brachiocephalic fistula. This is constructed by Dr. Man approximately 3 years ago. She has had 2 episodes of spontaneous bleeding from her left arm fistula. She saw Dr. Man on (07/07/2016). She presented to the Emergency Room on 07/08/2016 with spontaneous bleeding from her fistula. This was controlled with direct pressure. Coagulation studies at the time of presentation to the Emergency Room showed an INR of 1.4. No PTT was sent. She denies any recent interventions on her AV fistula. Dr. Man asked her to call if she had recurrent bleedings; however, she came to the Emergency Room. PAST MEDICAL HISTORY: 1. Chronic renal failure, on hemodialysis. 2. Hypertension. 3. Anemia of chronic disease. 4. Diabetes. PAST SURGICAL HISTORY: 1. Cholecystectomy. 2. Left brachiocephalic fistula formation. CURRENT MEDICATIONS: Please see detailed medication administration record for dosing details. She is on aspirin, hydralazine, Coreg, Farheen-Hari, amlodipine, Wellbutrin, Lexapro, Cozaar, and hydrochlorothiazide. ALLERGIES: ADVERSE REACTION TO QUININE AND CODEINE. SOCIAL HISTORY: She denies any smoking or alcohol use. FAMILY HISTORY: Noncontributory from bleeding and renal failure standpoint. REVIEW OF SYSTEMS: No recent fevers, chills, chest pain, or shortness of breath. She is on chronic home oxygen. She denies any abdominal or back pain. She has no pain in her left arm; however, she did have a spontaneous bleeding as noted above. No unilateral weakness, numbness, visual loss, speech changes, or other TIA or stroke symptoms. PHYSICAL EXAMINATION: GENERAL: This is a well-developed elderly female, in no acute distress. NECK: Supple. No lymphadenopathy. She is on oxygen per nasal cannula. CARDIOVASCULAR: Regular rate and rhythm. ABDOMEN: Soft, nontender, nondistended, no palpable mass. EXTREMITIES: She has a left brachiocephalic fistula in place. There is some dried blood on her bandage. This was removed. No active bleeding site was identified. She has a good thrill within her fistula. There are multiple puncture sites, but no erythema or significant ulcerations. It is unclear, which previous puncture site was bleeding. The fistula is a very superficial fistula to the skin. No definitive pseudoaneurysms identified. IMPRESSION: 1. Spontaneous bleeding from left arm arteriovenous fistula. It is unclear whether this is due to its superficial location or due to high venous pressures. 2. Chronic renal failure, on hemodialysis. 3. Hypertension. RECOMMENDATIONS: 1. May access her fistula. We would not recommend any surgical revision at this time. 2. She would likely benefit from a fistulogram to evaluate for possible central venous or proximal stenosis that may be increasing her venous pressures; this may be leading to her recurrent bleeding. This may be done as an outpatient with Dr. Man or done in the hospital prior to leaving. Please call if other concerns arise. There is no indication for surgical revision of her fistula at this time. JENNIFER MARES MD DR: CAYDEN/jaz JOB#: [id number] / [id number] RUFINO Gaines MD, MICHAEL MD
== END 2016-07-09 14:15 | disposition home or self-care (01) | DRG 314 ==
LOC: ER 07:34 → 5 SOUTH 10:16
PROVIDERS: ADMIT Internal Medicine; ATTEND Internal Medicine
PROC: 5A1D00Z (ICD-10-PCS; principal; 2016-07-08)
DX: T82.838A Hemorrhage due to vascular prosthetic devices, implants and grafts, initial encounter (principal); N18.6 End stage renal disease; I12.0 Hypertensive chronic kidney disease with stage 5 chronic kidney disease or end stage renal disease; D63.1 Anemia in chronic kidney disease; E11.22 Type 2 diabetes mellitus with diabetic chronic kidney disease; F32.9 Major depressive disorder, single episode, unspecified; K21.9 Gastro-esophageal reflux disease without esophagitis; F41.9 Anxiety disorder, unspecified; M19.90 Unspecified osteoarthritis, unspecified site; Y84.1 Kidney dialysis as the cause of abnormal reaction of the patient, or of later complication, without mention of misadventure at the time of the procedure; Z99.2 Dependence on renal dialysis; Z88.5 Allergy status to narcotic agent; Z88.8 Allergy status to other drugs, medicaments and biological substances; Z90.49 Acquired absence of other specified parts of digestive tract
CPT/HCPCS: 36415; 80048; 82947; 85027; 85610; 86706; 86850; 86900; 86901; 87340; 87341; 87641; 94250; 94640; 94760; J7620; 99285-25